=== PATIENT | male | born 1995 | race Caucasian/White ===

== ENCOUNTER → 2017-02-14 | Outpatient (CLI) | payer OTHER ==
--- NOTE | 2017-02-14 16:04 | DI ---
EXAM: MRI KNEE RIGHT W/O CONTRAST LOCATION OF DICTATION: [place] HISTORY: ITS.REASON: [id number] INJURY COMPARISON: No prior studies available for comparison. TECHNIQUE: Multiple contiguous axial, sagittal, and coronal MRI images and sequences were obtained of the knee without the use of IV contrast. FINDINGS: Medial joint compartment: The anterior and posterior horns of the medial meniscus are intact. The articular cartilage is intact and within normal limits. The medial collateral ligament is normal. Lateral joint compartment: The anterior horn and body of the lateral meniscus are diminutive which may be posttraumatic or postsurgical related. There is no obvious new acute meniscal tear identified. The articular cartilage appears to be intact and normal thickness. The lateral collateral ligament complex is normal. Patellofemoral joint: Normal alignment of the patellofemoral joint. The patellofemoral cartilage is normal in thickness. The medial and lateral patellar retinaculum are intact. The quadriceps and patella tendons are normal. Trace suprapatellar joint effusion. Cruciate ligaments: The anterior and posterior cruciate ligaments are intact and normal. Osseous structures: There is no abnormal marrow signal throughout the osseous structures. IMPRESSION: 1. Thin diminutive appearing anterior horn and body of the lateral meniscus which may be posttraumatic or postsurgically related. There is no clear evidence for an acute meniscal or cartilaginous tear. The medial joint compartment is normal. 2. There is trace suprapatellar joint effusion. 3. No abnormal bone marrow signal to suggest contusion. The ligaments and tendons are within normal limits. .
== END ==
LOC: IMA 14:32
PROVIDERS: ATTEND Family Medicine Sports Medicine
DX: R93.7 Abnormal findings on diagnostic imaging of other parts of musculoskeletal system (principal); Z98.890 Other specified postprocedural states